=== PATIENT | female | born 1945 | race Caucasian/White ===

== ENCOUNTER 2019-07-24 09:50 | Emergency (ER) | payer MEDICARE, BC ==
[2019-07-24 10:11] VITALS: BP 140/79; PULSE 76
--- NOTE | 2019-07-24 10:11 | EDM.PDOC ---
ED HPI GENERAL MEDICAL PROBLEM - General Chief Complaint: General Stated Complaint: CAME FROM CLINIC MAYBE BLOOD CLOT Time Seen by Provider: 07/24/19 10:11 Source of Information: Reports: Patient History Limitations: Reports: No Limitations - History of Present Illness INITIAL COMMENTS - FREE TEXT/NARRATIVE: 74-year-old female has 2 areas of redness and soreness on the medial aspect of her right leg over the past 2-3 days. 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 She called over the clinic to be seen today, they sent her to the emergency room. She has no shortness of breath, chest pain, fever or chills, no lower extremity swelling. She has a slightly reddened area on the medial aspect of her right knee and a separate area on her right thigh that are congruent with her varicosities that are sore. Onset: Gradual Duration: Day(s): (3 days) Location: Reports: Lower Extremity, Right Worsens with: Reports: Other (Worse with palpation or movement), Movement Associated Symptoms: Reports: No Other Symptoms. Denies: Fever/Chills Treatments EQUIPMENT MAN: Reports: Aspirin Right Lower Leg Pain Score (Numeric/FACES): 2 - Related Data Allergies Allergy/AdvReac Type Severity Reaction Status Date / Time aspirin Allergy Cannot Verified 07/24/19 10:13 Remember Sulfa (Sulfonamide Allergy Rash Verified 07/24/19 10:13 Antibiotics) Home Meds: Home Meds Loratadine 10 mg PO DAILY PRN 04/07/16 [History] Multivitamin with Minerals [Multiple Vitamin] 1 tab PO DAILY 04/07/16 [History] Cetirizine [ZyrTEC] 10 mg PO DAILY PRN 08/16/17 [History] Past Medical History HEENT History: Reports: Allergic Rhinitis, Hard of Hearing Gastrointestinal History: Reports: Colon Polyp, Hemorrhoids 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 left hip pain - Infectious Disease History Infectious Disease History: Reports: Chicken Pox, Measles, MRSA, Mumps - Past Surgical History HEENT Surgical History: Reports: Adenoidectomy, Tonsillectomy GI Surgical History: Reports: Colonoscopy, Polypectomy Musculoskeletal Surgical History: Reports: None Social & Family History - Caffeine Use Caffeine Use: Reports: Coffee ED ROS GENERAL - Review of Systems Review Of Systems: See Below Constitutional: Denies: Fever, Chills Respiratory: Denies: Shortness of Breath Cardiovascular: Denies: Chest Pain GI/Abdominal: Denies: Abdominal Pain, Nausea, Vomiting Skin: Reports: Erythema (Erythema over the painful areas only) Neurological: Denies: Paresthesia ED EXAM, GENERAL - Physical Exam Exam: See Below Exam Limited By: No Limitations General Appearance: Alert, No Apparent Distress Head: Atraumatic Respiratory/Chest: No Respiratory Distress, Lungs Clear Cardiovascular: Regular Rate, Rhythm Extremities: Other (Exam is otherwise limited to the lower extremities. She does have palpable varicosities in both lower extremities, particularly on the medial aspect. They are nontender on the left leg, the right leg has a 6 x 8 cm area of slightly raised firm tender and erythematous inflammation just medial to the knee and a smaller area on the medial aspect of the thigh. She has no distal edema, tenderness of the calf or popliteal area.) Course - Vital Signs Last Recorded V/S: Last Vital Signs Temp 97.4 F 07/24/19 10:12 Pulse 76 07/24/19 10:12 Resp 18 07/24/19 10:12 BP 140/79 07/24/19 10:12 Pulse Ox 97 07/24/19 10:12 - Re-Assessments/Exams Free Text/Narrative Re-Assessment/Exam: 07/24/19 11:00 Explained to the patient this is very likely a superficial thrombophlebitis. She does have a road trip planned in a couple of days and is concerned about DVT , an ultrasound of the leg will be obtained for reassurance and definitive diagnosis. We also set her up with a vascular consult tomorrow with surgery at the clinic at 2 PM if the ultrasound does not show any DVT. 07/24/19 11:57 Ultrasound confirmed superficial thrombophlebitis only. She will wear a support stocking on the right leg, elevate when able, and use anti-inflammatories with warm compresses. Recheck with Dr. Justice tomorrow at 2 PM. Departure - Departure Time of Disposition: 12:05 Disposition: Home, Self-Care 01 Condition: Good Clinical Impression: Superficial thrombophlebitis of right leg - Discharge Information Instructions: Thrombophlebitis Referrals: Roiko,Hussain, PSYCHOLOGY LECTURER [Primary Care Provider] - Forms: ED Department Discharge Care Plan Goals: Support stocking may be helpful, elevate leg if able, warm or cool compresses and anti-inflammatory such as 2 Aleve twice daily would be helpful. Continue activity as tolerated. Recheck with Dr. Justice at 2 PM tomorrow afternoon at [facility].
--- NOTE | 2019-07-24 12:44 | US ---
VL Duplex Lwr Ext Veins Ltd Rt INDICATION: pain,swelling right leg FINDINGS: Ultrasound examination of the lower extremity using Doppler and compressive technique demonstrates that the common femoral, femoral, and popliteal veins are patent, and negative for thrombus. The calf veins were segmentally visualized and are negative where seen. There is some segmental thrombus within the greater saphenous vein near the level of the knee. IMPRESSION: Negative for deep venous thrombosis. Segmental thrombosis in the lower portion of the greater saphenous vein near the knee
== END 2019-07-24 12:05 | disposition home or self-care (01) ==
LOC: JP.ED 09:50
DX: I82.811 Embolism and thrombosis of superficial veins of right lower extremity (principal); Z88.6 Allergy status to analgesic agent; Z88.2 Allergy status to sulfonamides
CPT/HCPCS: 93971-26; 93971-RT; 99283-25